=== PATIENT | female | born 1955 | race Caucasian/White ===

== ENCOUNTER 2018-09-29 19:34 | Emergency (ER) | payer OTHER ==
[~2018-09-29] VITALS: Ht 160 cm; Wt 72.6 kg
[~2018-09-29 19:34] MED LIST: ATENOLOL50 MG PO; AZITHROMYCIN250 MG PO; LEVOTHYROXINE100 MCG PO; ONDANSETRON ODT8 MG PO
--- OUTSIDE RECORDS SUMMARY | 2018-09-29 19:38 | XMS ---
PreManage Notification: CASEY STEINER Security Parts Inspector Events No recent Security Events currently on file [facility] There are no care providers on record at this time. Aliza has no Care Guidelines for this patient. Donnell VISIT COUNT (12 MO.) 2 [facility] TOTAL 2 NOTE: Visits indicate total known visits. ED/UCC VISIT TRACKING (12 MO.) 09/29/2018 19:35 [facility] [place] TYPE: Emergency COMPLAINT: - L HIP PAIN/POST FALL 07/30/2018 16:[address] [facility] [place] TYPE: Emergency COMPLAINT: - SWOLLEN RIGHT LEG DIAGNOSES: - Cutaneous abscess of right lower limb INPATIENT VISIT TRACKING (12 MO.) No inpatient visits to display in this time frame [email or web address]
[2018-09-29] MEDS ORDERED: CHANTIX1 MG PO (19:43)
[2018-09-29] MEDS ORDERED: PROZAC20 MG PO (19:43)
== END 2018-09-29 21:11 | disposition home or self-care (01) ==
LOC: ED 19:34
DX: M54.42 Lumbago with sciatica, left side (principal); G89.29 Other chronic pain; J45.909 Unspecified asthma, uncomplicated; I10 Essential (primary) hypertension; E03.9 Hypothyroidism, unspecified; Z87.891 Personal history of nicotine dependence; Z88.0 Allergy status to penicillin; Z88.8 Allergy status to other drugs, medicaments and biological substances; Z79.899 Other long term (current) drug therapy
CPT/HCPCS: 72100; 73502; 99283

== ENCOUNTER 2019-04-13 14:04 | Emergency (ER) | payer OTHER ==
[~2019-04-13] VITALS: Ht 160 cm; Wt 77.1 kg
[~2019-04-13 14:04] MED LIST changes: +CHANTIX1 MG PO; +PERCOCET 5-3251 EACH PO; +PROZAC20 MG PO
--- OUTSIDE RECORDS SUMMARY | 2019-04-13 14:08 | XMS ---
PreManage Notification: CASEY STEINER Security Health Care Specialist Events No recent Security Events currently on file CRITERIA MET - [facility] CARE PROVIDERS INGRID WALTERS [facility] 10/01/2018-Current PHONE: [phone] Aliza has no Care Guidelines for this patient. [facility] (12 MO.) [facility] [address] [id number] SONIA Urbina TOTAL 6 NOTE: Visits indicate total known visits. ED/C VISIT TRACKING (12 MO.) 04/13/2019 14:05 [facility] TYPE: Emergency COMPLAINT: - BLISTERS, PAIN 02/24/2019 19:25 [facility] [place] TYPE: Emergency COMPLAINT: - RIGHT FOOT INJURY DIAGNOSES: - Unspecified injury of right foot, initial encounter - Caught, crushed, jammed, or pinched between moving objects, initial encounter - Other group home (current) drug therapy - Allergy status to other drugs, medicaments and biological substances status - Acquired absence of other specified parts of digestive tract - Essential (primary) hypertension - Nondisplaced fracture of proximal phalanx of right lesser toe(s), initial encounter for closed fracture - Hypothyroidism, unspecified - Allergy status to penicillin - Allergy status to other antibiotic agents status - Personal history of nicotine dependence 11/09/2018 14:[address] [facility] TYPE: Emergency DIAGNOSES: - Other chronic pain - Low back pain 11/09/2018 13:56 [facility] TYPE: Emergency DIAGNOSES: - Low back pain - Other chronic pain - Back Pain 09/29/2018 19:35 [facility] Aquino TYPE: Emergency COMPLAINT: - L HIP PAIN/POST FALL DIAGNOSES: - Personal history of nicotine dependence - Unspecified asthma, uncomplicated - Lumbago with sciatica, left side - Other termite inspector (current) drug therapy - Hypothyroidism, unspecified - Other chronic pain - Allergy status to penicillin - Low back pain - Allergy status to other drugs, medicaments and biological substances status - Essential (primary) hypertension 07/30/2018 16:54 [facility] TYPE: Emergency COMPLAINT: - SWOLLEN RIGHT LEG DIAGNOSES: - Cutaneous abscess of right lower limb INPATIENT VISIT TRACKING (12 MO.) No inpatient visits to display in this time frame [id number]
[2019-04-13] MEDS ORDERED: FLUCONAZOLE150 MG PO (14:47)
[2019-04-13] MEDS ORDERED: NYSTATIN-TRIAMC15 GM TOP (14:47)
== END 2019-04-13 14:54 | disposition home or self-care (01) ==
LOC: ED 14:04
DX: B37.2 Candidiasis of skin and nail (principal); I10 Essential (primary) hypertension; E03.9 Hypothyroidism, unspecified; F32.9 Major depressive disorder, single episode, unspecified; Z87.891 Personal history of nicotine dependence; Z88.0 Allergy status to penicillin; Z88.6 Allergy status to analgesic agent; Z88.1 Allergy status to other antibiotic agents; Z79.899 Other long term (current) drug therapy
CPT/HCPCS: 99282

== ENCOUNTER 2022-11-18 06:55 | Day surgery (SDC) | payer MEDICARE, OTHER ==
[~2022-11-18] VITALS: Ht 160 cm; Wt 74.0 kg
[~2022-11-18 06:55] MED LIST changes: +COMBIVENT RESPIM4 GM INH; +CYMBALTA60 MG PO; +FLUCONAZOLE150 MG PO; +NYSTATIN-TRIAMC15 GM TOP; +RANITIDINE PO
--- NOTE | 2022-11-18 10:12 | NUR ---
11/18/22 1012 Sheets,Shy 0955 PT ARRIVED TO PACU AND WAKES SLIGHTLY TO TACTILE STIMULI, PT IS ENCOURAGED TO PASS GAS WHEN NEEDED. PT SLOWING ROLLS TO BACK. 0958 O2 SAT DECREASED TO LOW 90S WHILE ASLEEP. PT REMAINS ON 3L VIA NC. WARM BLACKETS GIVEN PER REQUEST. RESP EVEN AND UNLABORED.
--- NOTE | 2022-11-21 08:13 | OR ---
[facility] [address], [place] [address] Signed DATE OF OPERATION: 11/18/2022 SURGEON: Le Borjas MD PREOPERATIVE DIAGNOSES: 1. Personal history of serrated adenomatous colonic polyps in 2008 at age 53. 2. Diverticulosis. 3. Irritable bowel syndrome. POSTOPERATIVE DIAGNOSES: 1. 12 mm pedunculated polyp at 22 cm (sigmoid, snare). 2. 4 mm polyps x2 at 55 cm (left colon, hot biopsy). 3. 12 mm and 7 mm polyps at 60 cm (left colon, snare x2, clip x2, tattoo). 4. 10 mm periappendiceal polyp (snare). 5. 12 mm polyp and 7 mm polyps at cecum (snare, clip x1). 6. Ileocecal valve hot biopsy. 7. 4 mm sessile polyp at hepatic flexure (snare). 8. 7 mm sessile polyp at 50 cm (left colon, snare). PROCEDURE: Colonoscopy with snare polypectomy hot biopsy clips x3 and tattoo x2. INDICATIONS: Casey is a 67-year-old female, who 1st came to me back in 2008 at the age of 53. We removed two serrated adenomatous polyps at that time. We asked her to follow up in three years. Unfortunately, she had many other things going on including her back surgery. We also came through the COVID pandemic. She has finally gotten through her back surgery. She needs daily oxycodone and Flexeril for the pain. She has been through multiple CT scans because of her back surgery. She has been told she has diverticulosis. There is also concern about irritable bowel syndrome. She said with oxycodone she is not constipated. No family history of colon cancer or polyps. In the office, I gave her a pamphlet on colonoscopy. We had reviewed the nature of the test. There is risk including, but not limited to gas bloating, crampy abdominal pain, bleeding, perforation requiring surgery, and missed diagnosis. We also reviewed the written instructions for the bowel prep line by line. In addition, because of her now frail nature with significant continued back issues as well as COPD and her daily need of oxycodone and Flexeril, we asked for monitored anesthesia care with propofol infusion. That proved to be a vernon decision. She also required preoperative antibiotic due to her metal in her back. She had expressed understanding and wished to proceed. Electronically Signed By: LE BORJAS MD 11/21/22 0813 PATIENT NAME: CASEY STEINER OPERATIVE REPORT DATE OF : 57 REPORT #: [id number] PHYSICIAN: LE BORJAS MD PCP: INGRID WALTERS MD REPORT IS CONFIDENTIAL AND NOT TO BE RELEASED WITHOUT AUTHORIZATION [address] [address] Signed PROCEDURE NOTE: Casey was taken into our endoscopy suite and placed very carefully in the left lateral decubitus position with appropriate padding and monitoring. Once in place, she was given monitored anesthesia care with propofol infusion per our nurse miller helper. A digital rectal exam was performed. This was unremarkable. She had good sphincter tone. No external hemorrhoids. No palpable masses. The adult colonoscope had been inserted and advanced under direct visualization of the camera without difficulty. Fortunately, her prep was quite excellent. We could easily see the appendiceal orifice and the ileocecal valve. We had taken pictures throughout for photodocumentation. The above-mentioned polyps were removed as described above. We did place one clip on the large 12 mm polyp in the cecum. We used two clips on the large 12 mm polyp back at 60 cm. She has a tattoo next to the large polyp in the cecum as well as the large polyp back at 60 cm. We also noted a few diverticula in the sigmoid colon. They were moderate in size, few in number, and scattered about. Once in the rectum, the scope had been retroflexed and we could not see any additional pathology above the anal canal. After this, the gas was suctioned out and the colonoscope removed. Casey tolerated the procedure quite well. RECOMMENDATIONS: I will see Casey back in my office in 7 to 14 days to review her results. We know she has just a tiny bit of polyp remaining at 60 cm, which will need to be addressed. She more than likely has a few small polyps scattered in her colon that will need to be addressed. There is a also a little concern about the ileocecal valve. She will always need monitored anesthesia care. Le Borjas MD ALB/MODL /[id number] cc: MD Le Vernon MD Copies: INGRID WALTERS MD Electronically Signed By: LE BORJAS MD 11/21/22 0813 PATIENT NAME: CASEY STEINER OPERATIVE REPORT DATE OF : 57 REPORT #: [id number] PHYSICIAN: LE BORJAS MD PCP: INGRID WALTERS MD REPORT IS CONFIDENTIAL AND NOT TO BE RELEASED WITHOUT AUTHORIZATION [facility] [address] [place], [place] [address] Signed LE BORJAS MD ~ Electronically Signed By: LE BORJAS MD 11/21/22 0813 PATIENT NAME: CASEY STEINER OPERATIVE REPORT DATE OF : 57 REPORT #: [id number] PHYSICIAN: LE BORJAS MD PCP: INGRID WALTERS MD REPORT IS CONFIDENTIAL AND NOT TO BE RELEASED WITHOUT AUTHORIZATION
--- NOTE | 2022-11-21 15:55 | PATH ---
[facility] [address] [place], [place] [address] Signed SPECIMEN(S): A SIGMOID POLYP AT 22 CM SPECIMEN(S): B COLON POLYPS AT 55 CM SPECIMEN(S): C COLON POLYPS AT 60 CM SPECIMEN(S): D FATIMAH APPENDICEAL COLON POLYP SPECIMEN(S): E CECUM COLON POLYPS SPECIMEN(S): F ILEOCECAL VALVE COLON BIOPSY SPECIMEN(S): G HEPATIC FLEXURE COLON POLYP SPECIMEN(S): H COLON POLYP AT 50 CM SPECIMEN SOURCE: A. SIGMOID POLYP AT 22 CM B. COLON POLYPS AT 55 CM C. COLON POLYPS AT 60 CM D. FATIMAH APPENDICEAL COLON POLYP E. CECUM COLON POLYPS F. ILEOCECAL VALVE COLON BIOPSY G. HEPATIC FLEXURE COLON POLYP H. COLON POLYP AT 50 CM CLINICAL HISTORY: Pertinent History / Clinical Impression: Personal history of serrated adenoma x2, personal history of diverticulosis, family history of colon polyps or cancer. Postop Diagnosis: Diverticulosis, polyps. FINAL PATHOLOGIC DIAGNOSIS: A. Sigmoid polyp at 22 cm: - Tubular adenoma. B. Colon polyps at 55 cm: - Tubular adenoma (multiple fragments). C. Colon polyps at 60 cm: - Tubular adenoma (multiple fragments). D. Periappendiceal colon polyp: - Tubular adenoma (multiple fragments). E. Cecum colon polyps: - Tubular adenoma (multiple fragments). F. Ileocecal valve colon biopsy: - Benign small bowel-type mucosa with focal slight reactive features, negative for definite dysplasia or malignancy. G. Hepatic flexure colon polyp: - Tubular adenoma (two fragments). PATIENT NAME: CASEY STEINER PATHOLOGY DATE OF : 57 REPORT #: [id number] PHYSICIAN: CHAD HOLM PCP: INGRID WALTERS MD REPORT IS CONFIDENTIAL AND NOT TO BE RELEASED WITHOUT AUTHORIZATION [facility] [address] [place], [place] [address] Signed H. Colon polyp at 50 cm. - Tubular adenoma (multiple fragments). JVR:[facility]:C2NR MICROSCOPIC EXAMINATION: Histologic sections of all submitted blocks are examined by light microscopy. These findings, together with the gross examination, support the pathologic diagnosis. GROSS DESCRIPTION: A. The specimen, labeled and designated "Morehouse, sigmoid colon polyp at 22 cm," is received in formalin and consists of one bell soft tissue fragment, 1.0 cm. Resection margin is inked, and specimen is sectioned. The entire specimen is submitted in (A1). B. The specimen, labeled and designated "Genesis, colon polyps at 55 cm," is received in formalin and consists of seven bell soft tissue fragments, ranging from 0.1-0.9 cm. The biggest tissue fragment is inked and sectioned. The entire specimen is submitted in (B1). C. The specimen, labeled and designated "Genesis, colon polyps at 60 cm," is received in formalin and consists of multiple bell soft tissue fragments, 0.1-0.8 cm. The biggest tissue fragment is inked and bisected. The entire specimen is submitted in (C1). D. The specimen, labeled and designated "Genesis, periappendiceal polyp," is received in formalin and consists of multiple bell soft tissue fragments, 0.1-0.6 cm. Entirely submitted in (D1). E. The specimen, labeled and designated "Genesis, cecum polyps," is received in formalin and consists of multiple bell soft tissue fragments, 0.1-0.6 cm. Entirely submitted in (E1). F. The specimen, labeled and designated "Genesis, ileocecal valve biopsy," is received in formalin and consists of one bell soft tissue fragment, 0.2 cm. Entirely submitted in (F1). G. The specimen, labeled and designated "Genesis, hepatic flexure polyp," is received in formalin and consists of two bell soft tissue fragments, ranging from 0.2 cm. Entirely submitted in (G1). H. The specimen, labeled and designated "Morehouse, colon polyp at 50 cm," is received in formalin and consists of multiple bell soft tissue fragments, 0.1-0.7 cm. Entirely submitted in (H1). JS (under the direct supervision of a pathologist) The Gross Description was prepared using a voice recognition system. The report was reviewed for accuracy; however, sound-alike word errors, addition and/or deletions may occur. If there is any PATIENT NAME: CASEY STEINER PATHOLOGY DATE OF : 57 REPORT #: [id number] PHYSICIAN: CHAD PATHOLOGY PCP: INGRID WALTERS MD REPORT IS CONFIDENTIAL AND NOT TO BE RELEASED WITHOUT AUTHORIZATION [address] [address] Signed question about this report, please contact Client Services. PERFORMING LABORATORY: The technical component was performed by [facility], [address] [place] [id number] (CLIA# [id number]). Professional interpretation was performed by [facility], [address] [place] [id number] (CLIA#: [id number]). Diagnostician: Yonatan Nogueira MD Pathologist Electronically Signed 11/21/2022 Copies: ~ PATIENT NAME: CASEY STEINER PATHOLOGY DATE OF : 57 REPORT #: [id number] PHYSICIAN: CHAD PATHOLOGY PCP: INGRID WALTERS MD REPORT IS CONFIDENTIAL AND NOT TO BE RELEASED WITHOUT AUTHORIZATION
== END 2022-11-18 11:25 | disposition home or self-care (01) ==
LOC: DS 06:55 → OPS 06:55 → DS 09:00 → OPS 11:25
PROVIDERS: ATTEND Colon & Rectal Surgery
PROC: 0DBL8ZZ Excision of Transverse Colon, Via Natural or Artificial Opening Endoscopic (ICD-10-PCS; 2022-11-18)
PROC: 0DBN8ZZ Excision of Sigmoid Colon, Via Natural or Artificial Opening Endoscopic (ICD-10-PCS; 2022-11-18)
PROC: 0DBM8ZZ Excision of Descending Colon, Via Natural or Artificial Opening Endoscopic (ICD-10-PCS; principal; 2022-11-18 08:15)
DX: D12.5 Benign neoplasm of sigmoid colon (principal); D12.0 Benign neoplasm of cecum; D12.3 Benign neoplasm of transverse colon; F17.200 Nicotine dependence, unspecified, uncomplicated; Z86.010 Personal history of colon polyps; K57.30 Diverticulosis of large intestine without perforation or abscess without bleeding; K58.9 Irritable bowel syndrome, unspecified; J44.9 Chronic obstructive pulmonary disease, unspecified; G89.29 Other chronic pain; D12.4 Benign neoplasm of descending colon
CPT/HCPCS: J2704; J3490; J7121

== ENCOUNTER 2024-11-20 09:56 | Inpatient (IN) | payer MEDICARE, OTHER ==
[~2024-11-20] VITALS: Ht 160 cm; Wt 78.8 kg
[~2024-11-20 09:56] MED LIST changes: +DICLOFENAC SODI75 MG PO; +OXYCODONE HCL5 MG PO; +PREDNISONE20 MG PO; +ZITHROMAX250 MG PO
[2024-11-20] MEDS ORDERED: MELOXICAM7.5 MG PO (10:20)
[2024-11-20] MEDS ORDERED: PHENTERMINE H37.5 M1 PO (10:21)
[2024-11-20] MEDS ORDERED: ATORVASTATIN CA20 MG PO (10:21)
[2024-11-20] MEDS ORDERED: HYDROmorphone HCL 1 MG/ML SYR IM ONE (11:15)
[2024-11-20] MEDS ORDERED: HYDROCODONE/APAP 10/325 1 TAB PO ONE (13:30)
[2024-11-20 13:46] LABS: HEMATOCRIT 39.1 % (35.0-50.0); HEMOGLOBIN 13.5 g/dL (12.0-18.0); MCH 33.3 (27-36); MCHC 34.5 g/dl (30-36); MCV 96.5 fl (81-99); PLATELET COUNT 247 K/uL (140-440); RBC 4.06 M/ul (4.3-5.7); RDW 13.6 (10.5-15.0)
[2024-11-20 14:05] LABS: BANDS, MANUAL DIFF 1; BASOPHILS, MANUAL DIFF 2; EOSINOPHILS, MANUAL DIFF 5; LYMPHOCYTES, MANUAL DIFF 33; MONOCYTES, MANUAL DIFF 6; NEUTROPHILS, MANUAL DIFF 52
[2024-11-20 14:11] LABS: ALBUMIN 3.8 g/dL (3.4-5.0); ALBUMIN/GLOBULIN RATIO 1.12 (1.1-2.4); ANION GAP 12.8 (7-21); BILIRUBIN, TOTAL 0.5 mg/dL (0.2-1.0); BUN/CREATININE RATIO 18.55 (6.0-28.6); CALCIUM 9.7 mg/dL (8.5-10.1); CREATININE, SERUM 0.97 mg/dL (0.55-1.02); POTASSIUM 4.8 mmol/L (3.5-5.1); PROTEIN, TOTAL 7.2 g/dL (6.4-8.2)
[2024-11-20] MEDS ORDERED: NICOTINE 14 MG/24 HR 1 EA TDSY TD SCH (18:54)
[2024-11-20] MEDS ORDERED: LEVOTHYROXINE SODIUM 100 MCG TAB PO SCH (19:00)
[2024-11-20] MEDS ORDERED: LORazepam 2 MG/ML VIAL IV/IM PRN (19:15)
--- NOTE | 2024-11-20 19:16 | EKG ---
[facility] [address] [facility] [place], [place] [address] Signed Sinus bradycardia Low voltage QRS Septal infarct (cited on or before 22-AUG-2016) Abnormal ECG When compared with ECG of 06-FEB-2023 14:37, No significant change was found Confirmed by Chandana Rodriguez MD ([id number]) on 11/20/2024 7:16:44 PM Electronically Signed By: CHANDANA RODRIGUEZ MD 11/20/24 1916 PATIENT NAME: CASEY STEINER Electrocardiogram DATE OF : 57 PHYSICIAN: CHANDANA RODRIGUEZ MD REPORT #: [id number] REPORT IS CONFIDENTIAL AND NOT TO BE RELEASED WITHOUT AUTHORIZATION
--- NOTE | 2024-11-20 19:46 | NUR ---
pt ARRIVED TO MS FLOOR AT THIS TIME, PRIMARY RN CONNOR RECEIVING REPORT. ADMISSION COMPLETED, pt TRANSFERRED VIA 3PA W/ TRANSFER SHEET. pt A/OX4, pt HESITANT TO USE PUREWICK-EDUCATED AND pt ABLE TO VOID. pt ENJOYING SANDWHICH BOX AND WARM BLANKET PROVIDED. CALL LIGHT IN REACH, RT IN ROOM FOR EVING BREATHING TX.
[2024-11-20] MEDS ORDERED: MORPHINE SULFATE 4 MG/ML VIAL IV PRN (20:00)
[2024-11-20] MEDS ORDERED: ACETAMINOPHEN 500 MG TAB PO SCH (20:00)
[2024-11-20] MEDS ORDERED: IBUPROFEN 400 MG TAB PO SCH (20:00)
[2024-11-20] MEDS ORDERED: OXYCODONE HCL 5 MG TAB PO PRN (20:00)
[2024-11-20] MEDS ORDERED: ALBUTEROL/IPRATROPIUM 3 ML NEB INH SCH (20:00)
[2024-11-20 20:07] VITALS: BP 115/85
--- NOTE | 2024-11-20 21:35 | NUR ---
SCHEDULED MEDS ADMINISTERED PER ORDER. PATIENT DENIES ANY NEEDS. CALL LIGHT IN REACH. BRIEF CHECKED DUE TO PATIENT REPORTING SHE IS UNSURE IF SHE FEELS WET, BRIEF DRY AT THIS TIME. URINE NOTED IN SUCTION CANNISTER FROM [place].
--- NOTE | 2024-11-20 23:45 | NUR ---
PATIENT RESTING ON RIGHT SIDE, NO NEEDS IDENTIFIED. RESP EVEN AND UNLABORED. CALL LIGHT IN REACH.
[2024-11-21] VITALS (11 sets, daily range): BP systolic 109–135; BP diastolic 59–76
--- NOTE | 2024-11-21 02:00 | NUR ---
VS OBTAINED AND RECORDED BY TOMMY REDDY. PATIENT CONTINUES TO REST, NO NEEDS IDENTIFIED.
--- NOTE | 2024-11-21 02:22 | NUR ---
PATIENT RESTING WITH EYES CLOSED, RESP EVEN AND UNLABORED. SPO2 96% ON RA. NO NEEDS IDENTIFIED, CALL LIGHT IN REACH.
--- NOTE | 2024-11-21 03:08 | NUR ---
SCHEDULED MEDICATION ADMINISTERED. PATIENT HAS NO FURTHER NEEDS. CALL LIGHT IN REACH.
[2024-11-21 05:24] LABS: BASOPHILS 0.4 % (0-2); EOSINOPHILS 2.2 % (0-6); HEMATOCRIT 35.8 % (35.0-50.0); HEMOGLOBIN 12.4 g/dL (12.0-18.0); LYMPHOCYTES 31.7 % (24-44); MCH 33.5 (27-36); MCHC 34.7 g/dl (30-36); MCV 96.5 fl (81-99); MONOCYTES 4.4 % (0-12); NEUTROPHILS 61.3 % (39-80); PLATELET COUNT 215 K/uL (140-440); RBC 3.71 M/ul (4.3-5.7); RDW 13.7 (10.5-15.0)
--- NOTE | 2024-11-21 05:33 | NUR ---
PATIENT HAS PAIN IN RIGHT HIP WITH MOVEMENT, UNABLE TO WITHSTAND LARGE MOVEMENTS WITH PAIN AND PER PATIENT. NUMBNESS IN THE LAST 3 TOES ON THE RIGHT FOOT WHICH IS CHRONIC PER PATIENT. DENIES NUMBNESS AND TINGLING OTHERWISE.
--- NOTE | 2024-11-21 05:35 | NUR ---
PRN PAIN MEDICATION ADMIN PER ORDER PER PATIENT REQUEST. VS OBTAINED AND RECORDED. PURWICK PLACEMENT CHECKED PER PATIENT REQUEST PATIENT REPORTED SHE FEELS WET, BRIEF UNDER PATIENT IS DRY. URINE IN CANNISTER NOTED. NO FURTHER NEEDS NOTED BY PATIENT, CALL LIGHT IN REACH.
[2024-11-21 05:37] LABS: ANION GAP 12.9 (7-21); BUN/CREATININE RATIO 21.59 (6.0-28.6); CALCIUM 9.7 mg/dL (8.5-10.1); CREATININE, SERUM 0.88 mg/dL (0.55-1.02); MAGNESIUM 1.6 mg/dL (1.8-2.4); POTASSIUM 3.9 mmol/L (3.5-5.1)
--- NOTE | 2024-11-21 07:37 | NUR ---
MORNING REPORT RECIEVED FROM KEMAR LAMBERT. PT LAYING IN BED WITH EYES CLOSED. PT CHEST RISE EQUAL BILAT. PT HAS CALL LIGHT IN REACH AND NO CONCERNS AT THIS TIME.
--- NOTE | 2024-11-21 07:40 | NUR ---
PT RESTING IN BED. PT PROVIDED WARM WASH RAG. PT PROVIDED COFFEE AND WATER PER REQUEST. PT REQUESTING TO STAY IN BED FOR BREAKFAST. WHEN ASKING PT IF THEY WOULD LIKE TO SIT UP AT THIS TIME PT REFUSES. PT DENIES FURTHER NEEDS AT THIS TIME. CALL LIGHT IN REACH.
[2024-11-21] MEDS ORDERED: FOLIC ACID 1 MG TAB PO SCH (08:00)
[2024-11-21] MEDS ORDERED: THIAMINE HCL 100 MG TAB PO SCH (08:00)
--- NOTE | 2024-11-21 08:35 | NUR ---
PT SITTING UP IN BED EATING MEAL. PT AND THIS PAPER FINAL INSPECTOR MAKE A PLAN TO CHANGE PT BRIEF AFTER MEAL IS COMPLETE PER PT REQ. RN IN ROOM. CALL LIGHT IN REACH.
[2024-11-21] MEDS ORDERED: MAGNESIUM SULFATE 2 GM/50 ML BAG IV SCH (08:45)
--- NOTE | 2024-11-21 08:51 | NUR ---
UR CLINICAL REVIEW: 2 MN FOR VERSALUS-PER SUBSTANCE ABUSE COUNSELOR MEETS OBS FOR LOW BACK PAIN WITH NEED FOR PT EVAL AND PAIN CONTROL MEDICARE OBS 11/20/24 @ 1850 ORDER MATCHES REG NO AUTH RQUIRED PER MEDICARE GUIDELINES DISCHARGE DISPOSITION PENDING PT EVAL 11/22/24
[2024-11-21] MEDS ORDERED: ENOXAPARIN SODIUM 40 MG/0.4 ML SYR SUB-Q SCH (09:00)
[2024-11-21] MEDS ORDERED: DULOXETINE HCL 60 MG CAP PO SCH (09:00)
[2024-11-21] MEDS ORDERED: atenoloL 25 MG TAB PO SCH (09:00)
[2024-11-21] MEDS ORDERED: LEVOTHYROXINE SODIUM 100 MCG TAB PO SCH (09:00)
[2024-11-21] MEDS ORDERED: DULOXETINE HCL30 MG PO (09:05)
[2024-11-21] MEDS ORDERED: ATENOLOL100 MG PO (09:07)
--- NOTE | 2024-11-21 10:29 | NUR ---
PT WORKED WITH PHYSICAL THERAPY THIS MORNING. PT MOVED TO CHAIR AND TOLERATED WELL. PT STILL FAVORED THE R LEG. PT HAS NO COCNERNS AT THIS TIME AND CALL LIGHT IN REACH.
--- NOTE | 2024-11-21 10:47 | NUR ---
PT NOT AVAILBALE FOR VISIT. PROVIDED PRAYER.
--- NOTE | 2024-11-21 10:50 | NUR ---
INTO SEE PATIENT AT BEDSIDE. PERSONAL HEALTH INFORMATION REVIEWED. PATIENT LIVES IN AN APARTMENT. 9 STEPS TO GET INTO. PATIENT STATES DIFFCULTY DUE TO BACK PAIN. PATIENT HAS A COUPLE WALKERS THAT SHE OWNS BUT DOESNT KNOW WHERE THEY ARE. USES CANE. DOES NOT USE CPAP OR OXYGEN. DRIVES AT BASELINE. DOES NOT LIVE WITH HER FULLTIME. SHE GOES BACK AND FORTH FROM HIS PLACE. SHE DENIES DIFFCULTY PAYING UTLITIIES OR OBTAINING FOOD. NO FUTHER CM NEEDS AT THIS TIME.
--- NOTE | 2024-11-21 10:50 | NUR ---
PT BACK TO BED FROM SHOWER, 1PA W FWW . PT SHOWERED INDEP. BED LINEN CHANGE COMPLETE. NEW BRIEF, GOWN, AND SOCKS PLACED. WARM BLANKET, ICE WATER, AND SODA PROVIDED PER REQ. RN NOTIFED PT IS BACK IN BED. PT DENIES ANY NEEDS AT THIS TIME. CALL LIGHT IN REACH.
--- NOTE | 2024-11-21 11:14 | NUR ---
BEDSIDE COMMODE BROUGHT INTO ROOM. PT RESTING IN BED. RN IN ROOM. CALL LIGHT IN REACH
[2024-11-21] MEDS ORDERED: SUMATRIPTAN SU100 MG PO (11:56)
--- NOTE | 2024-11-21 11:57 | NUR ---
MED REC COMPLETE
[2024-11-21] MEDS ORDERED: PHARMACY RENAL DOSE ADJUSTMENT 1 DOSE MISC PO SCH (12:00)
--- NOTE | 2024-11-21 12:15 | NUR ---
PATIENT SHOWERED WITH SET UP ASSISTANCE. BED LINENS WERE CHANGED. RETURNED TO BED ONCE DONE.IV PUMP ALARM WAS GOING OFF, VETERINARY VIRUS SERUM INSPECTOR TINA NOTIFIED.
--- NOTE | 2024-11-21 13:00 | NUR ---
PT IS NOT IN ROOM AND IS WITH IMAGING FOR THEIR MRI. PT TO RETURN SOON.
--- NOTE | 2024-11-21 14:00 | NUR ---
PT SITTING UP IN BED, PT AMBULATED VIA PIVOT TO [facility]. PT TOLERATED WELL AND THEN RETURNED TO BED. PT HAS NO CURRENT CONCERNS AT THIS TIME AND PT PAIN IS CURRENTLY CONTROLLED. PT HAS CALL LIGHT IN REACH.
--- NOTE | 2024-11-21 16:20 | NUR ---
PT LAYING IN BED WITH EYES CLOSED, PT HAS CHEST RISE EQUAL BILAT CALL LIGHT IN REACH.
--- NOTE | 2024-11-21 17:47 | NUR ---
PT SITTING UP IN BED, PT DOES NOT HAVE ANY PAIN AT THIS TIME AND DENIES NEED FOR PAIN MEDICATION. PT IS EATING DINNER AND TOLERATING WELL. PT HAS NO CONCERNS AT THIS TIME CALL LIGHT IN REACH.
--- NOTE | 2024-11-21 19:35 | NUR ---
REPORT RECEIVED FROM DAYSHIFT RN. ASSUMED CARE, PATIENT RESTING IN BED, RESP EVEN AND UNLABORED. NO NEEDS IDENTIFIED, CALL LIGHT IN REACH.
--- NOTE | 2024-11-21 20:45 | NUR ---
ASSESSMENT COMPLETE, PATIENT GIVEN SCHEDULED MEDICATIONS. DENIES NEEDS. CALL LIGHT IN REACH.
--- NOTE | 2024-11-21 23:21 | NUR ---
PATIENT RESTING WITH EYES CLOSED, LAYING ON LEFT SIDE. RESP EVEN AND UNLABORED. NO NEEDS IDENTIFIED, CALL LIGHT IN REACH. BED ALARM ON.
[2024-11-22] VITALS (9 sets, daily range): BP systolic 116–138; BP diastolic 66–76
--- NOTE | 2024-11-22 00:19 | NUR ---
PATIENT RESTING WITH EYES CLOSED, RESP EVEN AND UNLABORED. NO NEEDS IDENTIFIED, CALL LIGHT IN REACH.
--- NOTE | 2024-11-22 02:15 | NUR ---
IN RM TO GIVE pt SCHEDULED MEDS. pt UP TO THE BSC VIA 1PA, STAND PIVOT. pt BACK TO BED AND DENIES ANY OTHER NEEDS AT THIS TIME. CALL LIGHT WITHIN REACH.
--- NOTE | 2024-11-22 04:22 | NUR ---
PATIENT RESTING WITH EYES CLOSED IN BED, RESP EVEN AND UNLABORED. NO NEEDS IDENTIFIED, CALL LIGHT IN REACH.
[2024-11-22 05:32] LABS: BASOPHILS 0.7 % (0-2); EOSINOPHILS 2.9 % (0-6); HEMOGLOBIN 11.8 g/dL (12.0-18.0); LYMPHOCYTES 29.4 % (24-44); MCH 33.7 (27-36); MCHC 34.8 g/dl (30-36); MCV 96.8 fl (81-99); MONOCYTES 5.9 % (0-12); NEUTROPHILS 61.1 % (39-80); PLATELET COUNT 196 K/uL (140-440); RBC 3.51 M/ul (4.3-5.7)
[2024-11-22 05:42] LABS: ANION GAP 12.3 (7-21); BUN/CREATININE RATIO 16.3 (6.0-28.6); CALCIUM 9.7 mg/dL (8.5-10.1); CREATININE, SERUM 0.92 mg/dL (0.55-1.02); MAGNESIUM 1.9 mg/dL (1.8-2.4); POTASSIUM 4.3 mmol/L (3.5-5.1)
--- NOTE | 2024-11-22 06:14 | NUR ---
VS OBTAINED AND RECORDED. PATIENT RESTING, WOKE EASILY TO RN ENTERING ROOM. NO NEEDS IDENTIFIED. CALL LIGHT IN REACH
--- NOTE | 2024-11-22 06:16 | NUR ---
PATIENT ABLE TO ROLL ONTO RIGHT HIP WITHOUT ASSISTANCE AND LIFT LEG WHEN ASKED. REPORTS NO NEEDS.
[2024-11-22] MEDS ORDERED: ALBUTEROL/IPRATROPIUM 3 ML NEB INH SCH (08:00)
--- NOTE | 2024-11-22 08:45 | NUR ---
Admin oxycodone 5mg po at this time for reported 7/10 right hip/back pain.
[2024-11-22] MEDS ORDERED: DULOXETINE HCL 30 MG CAP PO SCH (09:00)
--- NOTE | 2024-11-22 09:26 | NUR ---
INTO SEE PATIENT. PATIENT STILL UNSURE ABOUT SNF. PATIENT WAITING TO WORK WITH PT/OT. SHE WOULD LIKE TO TAKE HER TO OUTPATIENT THERAPY IF POSSIBLE. WILL CHECK IN LATER AFTER THERAPY TO SEE WHAT HER DECISION IS.
--- NOTE | 2024-11-22 09:31 | NUR ---
PER LAB CALLING REGARDING SYNOVIAL FLUID ORDERS, VERFIEID WITH MD, CAN CANCEL AT THIS TIME, WILL DETERMINE IF WE CONTINUE WITH PROCEDURE AT LATER TIME. ORDERS CANCELLED PER VERBAL WITH MD, WILL REORDER AT LATER TIME IF HIP ASPIRATION IS DETERMINED TO BE DONE NEXT WEEK WHEN RADIOLOGY STAFF AVAILABLE. PRIMARY RN NOTIFIED.
--- NOTE | 2024-11-22 09:59 | NUR ---
Patient awake, alert and oriented x3, no acute distress while in bed. Patient reports increased pain with ambulation, pain medications in use. Patient denies needs at this time.
--- NOTE | 2024-11-22 10:36 | NUR ---
VISITED DURING SPIRITUAL CARE ROUNDS. PT EXPRESSED FRUSTRATION WITH LACK OF ANSWERS, CONCERNS REGARDING POSSIBLE PLACEMENT AT REHAB FACILITY. EXTRUSION DIE TEMPLATE MAKER PROVIDED SUPPORTIVE PRESENCE, GAVE ANTICIPATORY GUIDANCE, PROVIDED HOSPITALITY, PRAYER.
--- NOTE | 2024-11-22 11:00 | NUR ---
INTO SEE PATIENT. PATIENT RELUCTANT TO GO TO SNF BUT IS STILL THINKING ABOUT. PATIENT CHOICE LETTER GIVEN. STATES "MY DAD AT [facility] AND ITS THE ONLY ONE IN [place]. WE DO NOT WANT TO GO ANYWHERE ELSE BECAUSE I LIVE OFF OF AND CAN NOT AFFORD TO DRIVE TO SEE HER. ALSO I DO NOT FEEL LIKE WE HAVE NOT FIXED WHY SHE CAME IN." PATIENT AND EDUCATED ON PT/OT RECCOMENDATION AND BENEFITS OF SNF. MD TALKED WITH PATIENT AND TODAY ABOUT TEST RESULTS AND HIS RECCOMENTDATIONS. PATIENT WILL HAVE ONE MORE TEST DONE ON MONDAY. WILL CHECK IN LATER ABOUT SNF DECISION NO FUTHER CM NEEDS.
--- NOTE | 2024-11-22 12:09 | NUR ---
Patient up to restroom, tolerated with walker/SBA. Patient reports increased pain in right hip/back with ambulation. Patient back to chair post void, legs elveated.
--- NOTE | 2024-11-22 14:30 | NUR ---
Oxycodone 5mg po admin for reports of 7/10 right leg/back pain.
--- NOTE | 2024-11-22 16:10 | NUR ---
REPORT RECEIVED FROM KEMAR FERREIRA. PT IS RESTING IN BED ON HER CELL PHONE AT THIS TIME, CALL LIGHT AND PERSONAL BELONGINGS IN REACH.
--- NOTE | 2024-11-22 17:07 | NUR ---
PATIENT RESTING IN BED WATCHING TELEVISION. ASSESSMENT COMPLETE. PT COMPLAINS OF R HIP PAIN. HEAT PACKS SUPPLIED. PT REQUESTING FRESH ICE WATER AND CUP OF ICE FOR HER SODA - PROVIDED. WARM BLANKETS ALSO PROVIDED. NO OTHER REQUUESTS, CALL LIGHT AND PERSONAL BELONGINGS IN REACH.
--- NOTE | 2024-11-22 18:25 | NUR ---
PATIENT RESTING IN BED WATCHING TELEVISION, SHE REPORTS THE HEAT PACKS ARE "WOUNDERFUL" FOR HER HIP AND BACK PAIN. SHE IS ASKING FOR HAIR TIES - PROVIDED. NO OTHER REQUESTS, CALL LIGHT AND PERSONAL BELONGINGS IN REACH.
--- NOTE | 2024-11-22 19:15 | NUR ---
REPORT RECEIVED FROM DOLLY REINOSO. pt RESTING IN THE BED. BOARD UPDATED. pt DENIES ANY OTHER NEEDS AT THIS TIME. CALL LIGHT WITHIN REACH.
[2024-11-22] MEDS ORDERED: MAGNESIUM HYDROXIDE/AL HYDROX 30 ML CUP PO PRN (20:45)
--- NOTE | 2024-11-22 21:00 | NUR ---
ASSESSMENT AND VITAL SIGNS DONE. pt RESTING IN THE BED. pt C/O 8/10 PAIN. PRN AND SCHEDULED PAIN MEDS ADMINISTERED. DRINK RPOVIDED. pt DENIES ANY OTHER NEEDS AT THIS TIME. CALL LIGHT WITHIN REACH.
--- NOTE | 2024-11-22 22:31 | NUR ---
CALL LIGHT ANSWERED. PT NEEDED TO USE BATHROOM. PHOTO MASK PROCESSOR 1PA WITH FWW TO BATHROOM. PT VOIDED AND ASSISTED BACK TO BED. PT STATES NO FURTHER NEEDS AT THIS TIME. CALL LIGHT WITHIN REACH.
[2024-11-22] MEDS ORDERED: FAMOTIDINE 20 MG/ 2 ML VIAL IV PRN (23:45)
[2024-11-22] MEDS ORDERED: CALCIUM CARBONATE 500 MG CHEW PO PRN (23:45)
[2024-11-22] MEDS ORDERED: PANTOPRAZOLE SODIUM 40 MG/10 ML VIAL IV ONE (23:45)
[2024-11-23] VITALS (8 sets, daily range): BP systolic 105–144; BP diastolic 64–85
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
--- NOTE | 2024-11-23 05:00 | NUR ---
pt RESTING IN THE BED WITH EYES CLOSED. RR EVEN AND UNLABORED. CALL LIGHT WITHIN REACH.
[2024-11-23 05:21] LABS: BASOPHILS 0.6 % (0-2); EOSINOPHILS 3.1 % (0-6); HEMATOCRIT 33.7 % (35.0-50.0); HEMOGLOBIN 11.6 g/dL (12.0-18.0); LYMPHOCYTES 32.8 % (24-44); MCH 33.5 (27-36); MCHC 34.5 g/dl (30-36); MCV 96.9 fl (81-99); MONOCYTES 5.2 % (0-12); NEUTROPHILS 58.3 % (39-80); PLATELET COUNT 204 K/uL (140-440); RBC 3.48 M/ul (4.3-5.7); RDW 13.7 (10.5-15.0)
[2024-11-23 05:31] LABS: ANION GAP 13.3 (7-21); BUN/CREATININE RATIO 13.68 (6.0-28.6); CALCIUM 9.5 mg/dL (8.5-10.1); CREATININE, SERUM 0.95 mg/dL (0.55-1.02); MAGNESIUM 1.7 mg/dL (1.8-2.4); POTASSIUM 4.3 mmol/L (3.5-5.1)
--- NOTE | 2024-11-23 05:51 | NUR ---
INVESTIGATOR OPERATOR OBTAIEND CITALS AND I&O. PT STATES NO NEEDS AT THIS TIME. CALL LIGHT WITHIN REACH.
--- NOTE | 2024-11-23 06:46 | NUR ---
IN TO GIVE pt PRN AND SCHEDULED MEDS. pt C/O 03/30 PAIN. pt UP TO THE BSC. pt DENIES ANY OTHER NEEDS AT THIS TIME. CALL LIGHT WITHIN REACH.
[2024-11-23] MEDS ORDERED: LEVOTHYROXINE SODIUM 100 MCG TAB PO SCH (07:00)
[2024-11-23] MEDS ORDERED: PANTOPRAZOLE SODIUM 40 MG TABEC PO SCH (07:00)
--- NOTE | 2024-11-23 07:31 | NUR ---
PT LAYING IN BED WITH EYES CLOSED, PT CHEST RISE EQUAL BILAT. PT PAIN WAS CONTROLLED LAST NIGHT, BUT DID RECIEVE PRN PAIN MEDS EARLIER IN THE MORNING. PT HAS NO CONCERNS AT THIS TIME CALL LIGHT IN REACH.
[2024-11-23] MEDS ORDERED: POLYETHYLENE GLYCOL 3350 1 PACKET PO ONE (08:30)
[2024-11-23] MEDS ORDERED: MAGNESIUM SULFATE 2 GM/50 ML BAG IV ONE (09:00)
--- NOTE | 2024-11-23 09:30 | NUR ---
PT LAYING IN BED, PT HAS NO CONCERNS AT THIS TIME, PT HAS CALL LIGHT IN REACH.
[2024-11-23] MEDS ORDERED: POLYETHYLENE GLYCOL 3350 1 PACKET ONE (10:56)
--- NOTE | 2024-11-23 11:36 | NUR ---
PATIENT REQUESTING PRN PAIN MEDICATION FOR R HIP PAIN RATED 7/10 - PROVIDED. PATIENT TAKES MEDICATION WITHOUT ISSUE. PATIENT AMBULATES WITH SBA AND FWW TO RESTROOM. PATIENT EDUCATED ON PULL CORD, VERBALIZES UNDERSTANDING. PRIVACY PROVIDED.
--- NOTE | 2024-11-23 11:53 | NUR ---
PT SITTING UP IN CHAIR, PT WORKED WITH PT THIS MORNING AND SAID THAT IT WENT BETTER THEN THE PAST FEW DAYS, PT STATES " SHE IS WORN OUT AFTER PT BUT FEELS BETTER THEN SHE HAS SINCE ARRIVING HERE". PT HAS CALL LIGHT IN REACH AND NO CURRENT CONCERNS AT THIS TIME.
--- NOTE | 2024-11-23 17:04 | NUR ---
PT REQUESTED PAIN MEDICATION FOR A PAIN 9-10. PT RECIEVED PRN OXY 5MG (SEE EMAR). PT HAS NO OTHER CONCERNS AND IS EATING DINNER CALL LIGHT IN REACH.
--- NOTE | 2024-11-23 17:51 | NUR ---
PT SITTING UP IN BED, PT DID NOT LIKE DINNER AND KITCHEN WAS CALLED FOR A SANDWICH BOX PT HAS NO OTHER CONCERNS AT THIS TIME CALL LIGHT IN REACH.
--- NOTE | 2024-11-23 18:03 | NUR ---
PT AMBULATED TO THE RESTROOM. PT TOLERATED WELL, PT RETURNED TO BED 1PA FWW. PT HAS NO CONCERNS AT THIS TIME CALL LIGHT IN REACH.
--- NOTE | 2024-11-23 19:42 | NUR ---
REPORT RECEIVED FROM DAY SHIFT RN. PT LYING IN BED ALERT AND ORIENTED. DENIES NEEDS. WHITE BOARD UPDATED. CALL LIGHT IN REACH.
--- NOTE | 2024-11-23 20:43 | NUR ---
EVENING ASSESSMENT COMPLETE. SCHEDULED MEDS ADMIN PER EMAR. PT REPORTS RIGHT HIP PAIN THAT RADIATES DOWN HER LEG 04/30. PRN FOR PAIN ADMIN PER EMAR. CMS INTACT. STRONG PEDAL PULSES FELT. VS AND I&O OBTAINED. PT DENIES QUESTIONS OR CONCERNS. CALL LIGHT IN REACH.
--- NOTE | 2024-11-23 22:25 | NUR ---
PT UP TO BR WITH FWW AND MINIMAL SBA TO VOID. GAIT STEADY. BACK TO BED, ELIZA WELL. NO FURTHER NEEDS. CALL LIGHT IN REACH.
[2024-11-24] VITALS (9 sets, daily range): BP systolic 111–127; BP diastolic 58–79
--- NOTE | 2024-11-24 00:15 | NUR ---
PT RESTING IN BED WITH EYES CLOSED. RESPIRATIONS EVEN. CALL LIGHT IN REACH.
--- NOTE | 2024-11-24 02:15 | NUR ---
PT RESTING IN BED WITH EYES CLOSED. AWAKENS EASILY. PT REPORTS RIGHT HIP/LEG PAIN 02/27. SCHEDULED AND PRN PAIN MEDS ADMIN. UP TO BR WITH SBA AND FWW TO VOID. GAIT STEADY. PT WITH INCREASED PAIN DURING AMBULATION. BACK TO BED. NO FURTHER NEEDS. CALL LIGHT IN REACH.
--- NOTE | 2024-11-24 04:25 | NUR ---
PT IN BED RESTING WITH EYES CLOSED. RESPIRATIONS EVEN. CALL LIGHT IN REACH.
[2024-11-24 05:18] LABS: BASOPHILS 0.7 % (0-2); EOSINOPHILS 3.2 % (0-6); HEMATOCRIT 33.6 % (35.0-50.0); HEMOGLOBIN 11.6 g/dL (12.0-18.0); LYMPHOCYTES 27.4 % (24-44); MCH 33.8 (27-36); MCHC 34.6 g/dl (30-36); MCV 97.4 fl (81-99); MONOCYTES 5.6 % (0-12); NEUTROPHILS 63.1 % (39-80); PLATELET COUNT 210 K/uL (140-440); RBC 3.45 M/ul (4.3-5.7); RDW 13.9 (10.5-15.0)
[2024-11-24 05:29] LABS: ANION GAP 12.8 (7-21); BUN/CREATININE RATIO 15.55 (6.0-28.6); CALCIUM 9.9 mg/dL (8.5-10.1); CREATININE, SERUM 0.9 mg/dL (0.55-1.02); MAGNESIUM 1.9 mg/dL (1.8-2.4); POTASSIUM 4.8 mmol/L (3.5-5.1)
--- NOTE | 2024-11-24 07:21 | NUR ---
MORNING REPORT RECIEVED FROM KEMAR QUEVEDO. PT LAYING IN BED WITH EYES CLOSED, CHEST RISE EQUAL BILAT. PT HAD NO ACUTE EVENTS OVER NIGHT, AND HAS CALL LIGHT IN REACH.
--- NOTE | 2024-11-24 08:11 | NUR ---
HOURLY ROUNDING. BOARD HAS BEEN UPDATED AND CALL LIGHT HAS BEEN PLACED WITHIN REACH
[2024-11-24] MEDS ORDERED: MAGNESIUM CITRATE 300 ML BTL PO ONE (09:00)
[2024-11-24] MEDS ORDERED: CYCLOBENZAPRINE HCL 10 MG TAB PO PRN (10:00)
--- NOTE | 2024-11-24 11:19 | NUR ---
PATIENT IS DRIKING MAG CITRATE MIXED WITH SPRITE. NO OTHER NEEDS AT THIS TIME.
--- NOTE | 2024-11-24 11:32 | NUR ---
PT WORKED WITH PT TODAY PT TOLERATED IT WELL AND HAS CONTINUED TO IMPROVE WITH MOBILITY. PT PAIN HAS NOT INCREASED AND HAS BEEN MANAGED WITH PHARM INTERVENTIONS. PT IS CURRENTLY SITTING IN CHAIR WITH SITTER ALARM ON FOR PT SAFETY. PT HAS CALL LIGHT IN REACH AND HAS NO CURRENT CONCERNS AT THIS TIME.
--- NOTE | 2024-11-24 14:30 | NUR ---
PT REPORTED PAIN IN HER RUQ, MD MEHTA NOTIFIED AND SAW THE PT MD MEHTA ORDERED ABD XRAY AND SUPOSITORY (SEE EMAR).
[2024-11-24] MEDS ORDERED: bisacodyL 10 MG SUPP PR ONE (14:45)
--- NOTE | 2024-11-24 15:23 | NUR ---
PT RECIEVED SUPOSITORY AND WENT TO IMAGING. PT TO RETURN SOON, PT TOLERATED WELL AND LEFT VIA WHEEL CHAIR.
--- NOTE | 2024-11-24 15:41 | NUR ---
PT RETURNED FROM IMAGING, PT IS NOW IN BED WITH NO CURRENT CONCERNS AT THIS TIME. PT HAS CALL LIGHT IN REACH.
--- NOTE | 2024-11-24 16:43 | NUR ---
PT LAYING IN BED, PT DID HAVE A LARGE BM AFTER SUPOSITORY WAS ADMIN, PT HAS NO MORE RUQ PAIN. PT HAS CALL LIGHT IN REACH
--- NOTE | 2024-11-24 17:41 | NUR ---
PT SITTING UP IN BED, PT HAS MANAGEABLE PAIN AT THIS TIME. PT STATES SHE FEELS BETTER AFTER HAVING THE LARGE BM EARLIER. PT HAS NO CONCERNS AT THIS TIME CALL LIGHT IN REACH.
--- NOTE | 2024-11-24 18:31 | NUR ---
PT LAYING IN BED WITH EYES CLOSED CHEST RISE EQUAL BILAT. PT HAS CALL LIGHT IN REACH.
--- NOTE | 2024-11-24 19:22 | NUR ---
REPORT RECEIVED FROM DAY SHIFT RN. PT LYING IN BED RESTING WITH EYES CLOSED. RESPIRATIONS EVEN. CALL LIGHT IN REACH.
--- NOTE | 2024-11-24 20:17 | NUR ---
EVENING ASSESSMENT COMPLETE. SCHEDULED PAIN MEDS ADMIN PER EMAR. PT REPORTS RIGHT HIP PAIN 02/27. ADDITIONAL PRN ADMIN PER REQUEST. PT UP TO BR WITH FWW AND SBA TO VOID. BACK TO BED, ELIZA WELL. VS AND I&O OBTAINED. PT DENIES QUESTIONS OR CONCERNS. CALL LIGHT IN REACH.
--- NOTE | 2024-11-24 22:36 | NUR ---
PT AWAKE IN BED WATCHING TV. FRESH WATER PROVIDED. NO FURTHER NEEDS.
[2024-11-25] VITALS (10 sets, daily range): BP systolic 114–135; BP diastolic 64–78
--- NOTE | 2024-11-25 00:15 | NUR ---
PT LYING ON RIGHT SIDE RESTING WITH EYES CLOSED. AWAKENED FOR PRN PAIN ADMIN PER PT REQUEST. PT REPORTS RIGHT HIP PAIN 6/. NO FURTHER NEEDS. CALL LIGHT IN REACH.
--- NOTE | 2024-11-25 01:54 | NUR ---
CALL LIGHT ANSWERED. PT UP TO BR WITH FWW AND SBA TO VOID. GAIT STEADY. BACK TO BED, ELIZA WELL. REPORTS RIGHT HIP PAIN 02/27. SCHEDULED PAIN MEDS ADMIN. NO FURTHER NEEDS. CALL LIGHT IN REACH.
--- NOTE | 2024-11-25 03:52 | NUR ---
PT IN BED RESTING WITH EYES CLOSED. RESPIRATIONS EVEN. CALL LIGHT IN REACH.
[2024-11-25 05:39] LABS: BASOPHILS 0.6 % (0-2); EOSINOPHILS 3.3 % (0-6); HEMATOCRIT 34.1 % (35.0-50.0); HEMOGLOBIN 11.6 g/dL (12.0-18.0); LYMPHOCYTES 25.5 % (24-44); MCH 33.2 (27-36); MCHC 34.1 g/dl (30-36); MCV 97.5 fl (81-99); MONOCYTES 4.5 % (0-12); NEUTROPHILS 66.1 % (39-80); PLATELET COUNT 214 K/uL (140-440)
[2024-11-25 05:53] LABS: ANION GAP 11.8 (7-21); BUN/CREATININE RATIO 15.38 (6.0-28.6); CALCIUM 9.7 mg/dL (8.5-10.1); CREATININE, SERUM 0.91 mg/dL (0.55-1.02); MAGNESIUM 2.1 mg/dL (1.8-2.4); POTASSIUM 4.8 mmol/L (3.5-5.1)
--- NOTE | 2024-11-25 06:38 | NUR ---
PT UP TO BR WITH FWW AND SBA TO VOID. BACK TO BED, ELIZA WELL. VS AND I&O OBTAINED. SCHEDULED MEDS ADMIN PER EMAR. PT REPORTS RLE PAIN 01/28. PRN FOR PAIN ADMIN PER EMAR. NO FURTHER NEEDS. CALL LIGHT IN REACH.
--- NOTE | 2024-11-25 07:16 | NUR ---
MORNING REPORT RECIEVED FROM KEMAR QUEVEDO. PT LAYING IN BED WITH EYES CLOSED CHEST RISE EQUAL BILAT. PT HAS CALL LIGHT IN REACH.
--- NOTE | 2024-11-25 08:17 | NUR ---
HOURLY ROUNDING. BOARD HAS BEEN UPDATED, PATIENR REQUESTED COFFEE AND WANTED BREAKFEAST. I ASSURED PATIENT BREAKFEAST WILL BE IN SOON NO REQUEST FROMPATIENT AT THIS TIME
[2024-11-25] MEDS ORDERED: POLYETHYLENE GLYCOL 3350 1 PACKET PO PRN (09:00)
--- NOTE | 2024-11-25 10:38 | NUR ---
INTO SEE PATIENT. PATIENT STATES SHE IS GOING HOME WITH TOMORROW. RAMP INSTALLED AND HE HAS A CANE FOR HER. SHE WOULD LIKE TO DO OUTPATIENT THERAP. PATIENT IS HAVING A ARTHOCENTESIS DONE TODAY. NO FUTHER CM NEEDS AT THIS TIME.
--- NOTE | 2024-11-25 10:49 | NUR ---
PT LAYING IN BED, PT HAS MILD PAIN RIGHT NOW AND DENIES NEED FOR PAIN MEDICATION. PT HAS NO THER CONCERNS AT THIS TIME AND HAS CALL LIGHT IN REACH.
--- NOTE | 2024-11-25 11:15 | NUR ---
HOURLY ROUNDNG. NO REQUEST FROM PATIENT AT THIS TIME. CALL LIGHT HAS BEEN PLACED WITHIN REACH
--- NOTE | 2024-11-25 11:43 | NUR ---
PT CURRENTLY LAYING IN BED, PT HAS EYES CLOSED AND CHEST RISE EQUAL BILAT. PT HAS CALL LIGHT IN REACH.
--- NOTE | 2024-11-25 12:57 | NUR ---
PT SITTING UP IN BED, PT HAS MILD PAIN AT THIS TIME DENIES NEED FOR MEDICATION AT THIS TIME. PT IS CURRIOUS WHEN SHE WILL HAVE HER PROCEDURE. PROCEDURE TIME WAS EXPLAINED TO PT AND PT WAS AGREEABLE. PT HAS NO CURRENT CONCERNS AT THIS TIME CALL LIGHT IN REACH.
--- NOTE | 2024-11-25 14:03 | NUR ---
PT LEFT WITH IMAGING TO RECIEVE HER TREATMENT. PT HAS NO CURRENT CONCERNS AT THIS TIME. PT SHALL RETURN SHORTLY TO THE SAME ROOM ON FLOOR.
--- NOTE | 2024-11-25 14:47 | NUR ---
PT RETURNED FROM PROCEDURE, PT RETURNED TO BED AND RECIEVED PRN OXY FOR PAIN 7-10 (SEE EMAR). PT HAS NO OTHER CONCERNS AT THIS TIME CALL LIGHT IN REACH.
--- NOTE | 2024-11-25 14:55 | NUR ---
PT NOT AVAILABLE FOR VISIT. PROVIDED PRAYER.
--- NOTE | 2024-11-25 15:00 | NUR ---
HOURLY ROUNDING. PATIENT IS BACK IN BED, NO REQUEST FROM PATIENT AT THIS TIME. CALL LIGHT PLACED WITHIN REACH
--- NOTE | 2024-11-25 15:36 | NUR ---
PT GRAM STAIN STATED NO ORGANISMS WERE SEEN. MD LLANES WAS MADE AWARE OF FINDINGS. MD LLANES HAD NO FURTHER QUESTIONS AT THIS TIME.
--- NOTE | 2024-11-25 16:13 | NUR ---
PT AMBULATED TO RESTROOM 1PA FWW AND VOIDED WITH A BM. PT THEN RETURNED TO BED. PT HAS NO OTHER CONCERNS AT THIS TIME, PT HAS CALL LIGHT IN REACH.
--- NOTE | 2024-11-25 17:52 | NUR ---
PT SITTING UP IN BED EATING DINNER, PT DENIES NEED FOR PAIN MEDICATION AT THIS TIME. PT STATES SHE WANTS TO TAKE A SHOWER AFTER EATING DINNER. PT HAS NO OTHER CONCERNS AT THIS TIME AND HAS CALL LIGHT IN REACH.
--- NOTE | 2024-11-25 19:39 | NUR ---
REPORT RECEIVED FROM DAY SHIFT RN. PT LYING IN BED ALERT AND ORIENTED. FRESH WATER PROVIDED. NO FURTHER NEEDS. WHITE BOARD UPDATED. CALL LIGHT IN REACH.
--- NOTE | 2024-11-25 20:12 | NUR ---
EVENING ASSESSMENT COMPLETE. SCHEDULED MEDS ADMIN PER EMAR. PT REPORTS RIGHT HIP PAIN 03/30. ADDITIONAL PRN FOR PAIN ADMIN PER PT REQUEST. UP TO BR WITH SBA AND FWW TO VOID AND HAVE XL BM. BACK TO BED, ELIZA WELL. VS AND I&O OBTAINED. PT DENIES QUESTIONS OR CONCERNS. CALL LIGHT IN REACH.
--- NOTE | 2024-11-25 22:51 | NUR ---
PATIENT CALLED. PATIENT UP TO THE BATHROOM WITH WALKER TO VOID 500ML YELLOW URINE AND BM. PATIENT RETURNED TO BED. HOSPITAL GOWN CHANGED DUE TO DAMPED WITH SWEAT. ICE WATER REFILLED. NO FURTHER NEEDS AT THIS TIME.
--- NOTE | 2024-11-26 00:17 | NUR ---
PT REPORTS RIGHT HIP PAIN 8/10 AFTER AMB TO BR. PRN FOR PAIN ADMIN PER EMAR. NO FURTHER NEEDS.
--- NOTE | 2024-11-26 02:23 | NUR ---
PT AWAKE IN BED. REPORTS RLE PAIN 01/28. SCHEDULED PAIN MEDS ADMIN PER EMAR. FRESH WATER PROVIDED. NO FURTHER NEEDS.
--- NOTE | 2024-11-26 03:49 | NUR ---
PT RESTING IN BED WITH EYES CLOSED. RESPIRATIONS EVEN. CALL LIGHT IN REACH.
[2024-11-26 06:00] VITALS: BP 122/80
[2024-11-26 06:05] VITALS: BP 122/80
--- NOTE | 2024-11-26 06:31 | NUR ---
PT RESTING IN BED WITH EYES CLOSED. AWAKENS EASILY. UP TO BR TO VOID WITH FWW AND SBA. BACK TO BED, ELIZA WELL. VS AND I&O OBTAINED. PT REPORTS RIGHT HIP PAIN 03/30. PRN FOR PAIN ADMIN PER EMAR. NO FURTHER NEEDS. CALL LIGHT IN REACH.
--- NOTE | 2024-11-26 07:07 | NUR ---
VERBAL REPORT RECEIVED FROM KEMAR QUEVEDO. PT RESTS IN BED WITH EYES CLOSED, RESP EVEN AND UNLABORED.
[2024-11-26] MEDS ORDERED: FAMOTIDINE 20 MG TAB PO PRN (07:30)
--- NOTE | 2024-11-26 08:08 | NUR ---
HOURLY ROUNDING. BOARD HAS BEEN UPDATED AND CALL LIGHT HAS BEEN PLACED WITHIN REACH
[2024-11-26 09:17] VITALS: BP 115/71
[2024-11-26] MEDS ORDERED: IBUPROFEN400 MG PO (09:17)
[2024-11-26] MEDS ORDERED: OXYCODONE HCL5 MG PO (09:18)
[2024-11-26] MEDS ORDERED: ACETAMINOPHEN500 MG PO (09:20)
--- NOTE | 2024-11-26 09:33 | NUR ---
IMM LETTER COMPLETED. PATIENT DISCHARGING TODAY. NO FUTHER CM NEEDS. SHE WILL GO HOME WITH .
--- NOTE | 2024-11-26 09:50 | NUR ---
OUTPATIENT THERAPY ORDERS FAXED TO [facility]
--- NOTE | 2024-11-26 09:56 | NUR ---
DISCUSSED DISCHARGE INSTRUCTIONS WITH PT, PT VERBALIZES UNDERSTANDING. PT HAS CALLED A FRIEND FOR TRANSPORTATION HOME.
[2024-11-26 10:50] VITALS: BP 124/81
--- NOTE | 2024-11-26 11:44 | NUR ---
PT DRESSES SELF FOR DISCHARGE, REJIS JESSICA. IV REMOVED BY KEMAR BARNETT. VSS. PT LEAVES UNIT VIA WHEELCHAIR.
== END 2024-11-26 11:03 | disposition home or self-care (01) | DRG 554 ==
LOC: ED 09:56 → MS 09:58
PROVIDERS: Emergency Medicine; ADMIT Student in an Organized Health Care Education/Training Program; ATTEND Student in an Organized Health Care Education/Training Program
PROC: 0S993ZZ Drainage of Right Hip Joint, Percutaneous Approach (ICD-10-PCS; principal; 2024-11-25)
DX: M16.11 Unilateral primary osteoarthritis, right hip (principal); M51.16 Intervertebral disc disorders with radiculopathy, lumbar region; E03.9 Hypothyroidism, unspecified; J45.909 Unspecified asthma, uncomplicated; I10 Essential (primary) hypertension; F32.A Depression, unspecified; G89.29 Other chronic pain; E78.5 Hyperlipidemia, unspecified; F39 Unspecified mood [affective] disorder; F10.10 Alcohol abuse, uncomplicated; R00.1 Bradycardia, unspecified; R09.02 Hypoxemia; M25.451 Effusion, right hip; M65.88 Other synovitis and tenosynovitis, other site; Z87.891 Personal history of nicotine dependence; Z90.49 Acquired absence of other specified parts of digestive tract; Z98.890 Other specified postprocedural states; Z98.1 Arthrodesis status; Z88.0 Allergy status to penicillin; Z88.1 Allergy status to other antibiotic agents; Z88.8 Allergy status to other drugs, medicaments and biological substances; Z79.899 Other long term (current) drug therapy; Z79.890 Hormone replacement therapy; Z79.51 Long term (current) use of inhaled steroids
CPT/HCPCS: 20610; 36415; 71045; 72100; 72148; 72192; 73502; 73721; 74019; 75635; 80048; 80053; 82945; 83735; 84157; 84484; 84550; 85025; 85651; 86140; 87070; 87075; 87205; 89051; 89060; 93005; 93010; 94640; 94760; 94799; 96372; 97110; 97116; 97162; 97166; 97530; 99285-25; A9270; J1171; J1650; J2470; J3475; Q9967

== ENCOUNTER 2025-02-20 23:29 | Emergency (ER) | payer MEDICARE, OTHER ==
[~2025-02-20] VITALS: Ht 160 cm; Wt 83.0 kg
[~2025-02-20 23:29] MED LIST changes: +ACETAMINOPHEN500 MG PO; +ATENOLOL100 MG PO; +ATORVASTATIN CA20 MG PO; +DULOXETINE HCL30 MG PO; +IBUPROFEN400 MG PO; +MELOXICAM7.5 MG PO; +PHENTERMINE H37.5 M1 PO; +SUMATRIPTAN SU100 MG PO
[2025-02-21 00:18] LABS: ALT (SGPT) 16.0 U/L (14-59); AST (SGOT) 17.0 U/L (15-37); GLOMERULAR FILTRATION RATE,EST 61.0 mL/min (>60); PROTEIN, TOTAL 6.8 g/dL (6.4-8.2); UREA NITROGEN 11.0 mg/dL (7-18)
[2025-02-21 00:39] LABS: BASOPHILS 1.0 % (0.1-1.2); EOSINOPHILS 2.6 % (0.7-5.8); LYMPHOCYTES 41.6 % (19.3-51.7); MCH 31.6 PG (25.6-32.2); MCHC 32.9 g/dL (32.2-35.5); MCV 95.8 fL (79.4-94.8); MONOCYTES 6.2 % (4.7-12.5); NEUTROPHILS 47.6 % (34.0-71.1); RBC 3.61 M/uL (3.93-5.22)
[2025-02-21] MEDS ORDERED: OXYCODONE HCL 5 MG TAB PO PRN (06:45)
[2025-02-21 07:48] VITALS: BP 104/66
== END 2025-02-21 07:48 | disposition home or self-care (01) ==
LOC: ED 23:29
PROVIDERS: Internal Medicine
DX: T81.33XA Disruption of traumatic injury wound repair, initial encounter (principal); W18.30XA Fall on same level, unspecified, initial encounter; J45.909 Unspecified asthma, uncomplicated; I10 Essential (primary) hypertension; Z87.891 Personal history of nicotine dependence; Z88.0 Allergy status to penicillin; Z88.1 Allergy status to other antibiotic agents; Z79.899 Other long term (current) drug therapy
CPT/HCPCS: 36415; 73502; 80053; 85025; 99284; A9270; G0480

== ENCOUNTER 2025-02-21 18:59 | Emergency (ER) | payer MEDICARE, OTHER ==
[~2025-02-21] VITALS: Ht 160 cm; Wt 83.0 kg
[2025-02-21] MEDS ORDERED: OXYCODONE HCL 5 MG TAB PO PRN (21:30)
[2025-02-21 22:59] VITALS: BP 125/73
== END 2025-02-21 23:02 | disposition short-term general hospital (02) ==
LOC: ED 18:59
DX: T81.31XA Disruption of external operation (surgical) wound, not elsewhere classified, initial encounter (principal); J45.909 Unspecified asthma, uncomplicated; I10 Essential (primary) hypertension; M19.90 Unspecified osteoarthritis, unspecified site; Z87.891 Personal history of nicotine dependence; Z88.0 Allergy status to penicillin; Z88.1 Allergy status to other antibiotic agents
CPT/HCPCS: 73090; 99284; A9270

== ENCOUNTER 2025-02-27 05:59 | Emergency (ER) | payer MEDICARE, OTHER ==
[~2025-02-27] VITALS: Ht 160 cm; Wt 88.8 kg
[2025-02-27] MEDS ORDERED: BAYER CHEWABLE81 MG PO (06:07)
[2025-02-27] MEDS ORDERED: OXYCODONE HCL 10 MG TAB PO ONE (06:45)
[2025-02-27 08:35] VITALS: BP 127/75
== END 2025-02-27 08:35 | disposition home or self-care (01) ==
LOC: ED 05:59
DX: T82.524A Displacement of infusion catheter, initial encounter (principal); J45.909 Unspecified asthma, uncomplicated; I10 Essential (primary) hypertension; M19.90 Unspecified osteoarthritis, unspecified site; Z87.891 Personal history of nicotine dependence
CPT/HCPCS: 71045; 96365; 99283-25; J0696

== ENCOUNTER 2025-03-13 15:47 | Emergency (ER) | payer MEDICARE, OTHER ==
[~2025-03-13] VITALS: Ht 160 cm; Wt 84.0 kg
[~2025-03-13 15:47] MED LIST changes: +BAYER CHEWABLE81 MG PO
[2025-03-13] MEDS ORDERED: OXYCODONE/APAP 10/325 TAB PO ONE (16:30)
[2025-03-13] MEDS ORDERED: HEParin SOD (PORCINE) 500 UNIT/5 ML ML IV ONE ×2 (17:45→20:00)
[2025-03-13 20:25] VITALS: BP 105/57
== END 2025-03-13 20:32 | disposition home or self-care (01) ==
LOC: ED 15:47
DX: S70.01XA Contusion of right hip, initial encounter (principal); I10 Essential (primary) hypertension; E03.9 Hypothyroidism, unspecified; M19.90 Unspecified osteoarthritis, unspecified site; J45.909 Unspecified asthma, uncomplicated; X58.XXXA Exposure to other specified factors, initial encounter; Z79.82 Long term (current) use of aspirin; Z79.899 Other long term (current) drug therapy; Z88.0 Allergy status to penicillin; Z88.1 Allergy status to other antibiotic agents; Z88.8 Allergy status to other drugs, medicaments and biological substances; Z87.891 Personal history of nicotine dependence
CPT/HCPCS: 72100; 73502; 96365; 96375; 99283-25; J0696